=== PATIENT | female | born 1995 ===

== ENCOUNTER 2023-11-28 14:45 | Emergency (ER) | payer OTHER ==
[~2023-11-28] VITALS: Ht 160 cm; Wt 80.0 kg
[2023-11-28 15:15] VITALS: O2SAT 100
[2023-11-28 15:59] LABS: BASOPHILS % 0.6 % (0.0-2.0); EOSINOPHILS % 0.9 % (0.0-5.0); HEMATOCRIT. 40.2 % (36.0-48.0); HEMOGLOBIN. 13.3 g/dL (12.0-16.0); LYMPHOCYTES % 22.5 % (20.0-50.0); MEAN CORPUSCULAR HEMOGLOBIN 29.7 pg (28.0-32.0); MEAN CORPUSCULAR HGB CONC 33.1 g/dL (31.0-37.0); MEAN PLATELET VOLUME 8.3 fl (7.4-10.4); MONOCYTES % 3.6 % (2.0-8.0); NEUTROPHILS % 72.4 % (40.0-76.0); PLATELET 265 x1000/uL (130-400); RED BLOOD CELL COUNT 4.47 mill/uL (4.2-5.4); RED CELL DISTRIBUTION WIDTH 12.5 % (11.6-14.6); WHITE BLOOD COUNT 6.8 x1000/uL (4.5-11.0)
[2023-11-28 16:04] LABS: CHLORIDE 105 mEq/L (98-107); POTASSIUM 3.6 mEq/L (3.5-5.1); SODIUM 137 mEq/L (136-145)
[2023-11-28 16:05] LABS: CALCIUM 9.5 mg/dL (8.7-10.4); CARBON DIOXIDE 24 mEq/L (21-32)
[2023-11-28 16:10] LABS: CREATININE 0.7 mg/dL (0.6-1.0); GLUCOSE 90 mg/dL (70-105); UREA NITROGEN BLOOD 7 mg/dL (9-23)
[2023-11-28 16:33] LABS: B-HCG QUANTITATIVE 12225 mIU/mL (<3)
[2023-11-28] MEDS: ACETAMINOPHEN 325MG TABLET PO ONE (22:14)
[2023-11-28 22:53] LABS: CLARITY URINE CLOUDY (CLEAR); COLOR URINE YELLOW (YELLOW); GLUCOSE URINE NEGATIVE (NEGATIVE); KETONES URINE 3+ (NEGATIVE); LEUKOCYTE ESTERASE URINE 1+ (NEGATIVE); NITRITE URINE NEGATIVE (NEGATIVE); OCCULT BLOOD URINE 2+ (NEGATIVE); PROTEIN URINE NEGATIVE (NEGATIVE); UROBILINOGEN URINE 0.2 E.U./dL (0.2-1.0)
[2023-11-28 23:07] LABS: SQUAMOUS EPITHELIAL CELL URINE 2+ /lpf (RARE/1+)
[2023-11-28 23:08] LABS: BACTERIA URINE 1+; MUCUS URINE 1+ /lpf (< = 2+)
[2023-11-28] MEDS ORDERED: CEPH250C2 MT (23:17)
[2023-11-28 23:35] VITALS: BP 108/64; PULSE 88; RESP 14; TEMP 98.1
== END 2023-11-28 23:40 | disposition home or self-care (01) ==
LOC: ER 15:09
DX: O23.31 Infections of other parts of urinary tract in pregnancy, first trimester (principal); S33.5XXA Sprain of ligaments of lumbar spine, initial encounter; Z3A.01 Less than 8 weeks gestation of pregnancy; X58.XXXA Exposure to other specified factors, initial encounter; Y93.89 Activity, other specified; Y92.89 Other specified places as the place of occurrence of the external cause; Y99.8 Other external cause status
CPT/HCPCS: 36415; 76801; 80048; 81003; 81025; 84702; 85025; 86850; 86900; 99284